=== PATIENT | female | born 1980 | race Caucasian/White ===

== ENCOUNTER 2019-01-14 18:36 | Emergency (ER) | payer SELFPAY, MEDICAID ==
[2019-01-14] MEDS: LIDOCAINE 1% (MDV) 20 ML INJ SC (19:43)
[2019-01-14] MEDS: ACETAMINOPHEN 325 MG TAB PO (19:47)
== END 2019-01-14 20:20 | disposition home or self-care (01) ==
LOC: FTE 18:36
DX: L60.0 Ingrowing nail (principal); L60.9 Nail disorder, unspecified
CPT/HCPCS: 11765; 99283-25

== ENCOUNTER 2019-01-24 12:45 | Emergency (ER) | payer SELFPAY ==
[2019-01-24] MEDS: LIDOCAINE 1% (MPF) 5 ML VIAL INJ (14:06)
== END 2019-01-24 14:52 | disposition home or self-care (01) ==
LOC: FTE 12:45
DX: L60.0 Ingrowing nail (principal)
CPT/HCPCS: 11765; 99283-25